=== PATIENT | female | born 1960 | race Caucasian/White ===

== ENCOUNTER 2024-04-01 21:34 | Emergency (ER) | payer OTHER ==
[~2024-04-01] VITALS: Ht 165.1 cm; Wt 65.6 kg
[2024-04-01 22:28] LABS: BASO % 0.7 % (0.0-1.0); EOS # 0.2 10^3/uL (0.0-0.5); EOS % 2.8 % (0.0-3.0); HEMATOCRIT 44.8 % (36.0-47.0); HEMOGLOBIN 15.1 g/dl (12.0-15.5); LYMPH # 2.5 10^3/uL (1.5-5.0); MEAN CORPUSCULAR HEMOGLOBIN 31.1 pg (27.0-33.0); MEAN CORPUSCULAR HGB CONC 33.7 g/dl (32.0-36.5); MEAN CORPUSCULAR VOLUME 92.2 fl (80.0-96.0); MONO # 0.5 10^3/uL (0.0-0.8); MONO % 9.6 % (2.0-8.0); NEUTROPHILS # 2.3 10^3/uL (1.5-8.5); NEUTROPHILS % 41.7 % (36.0-66.0); PLATELET COUNT, AUTOMATED 204 10^3/uL (150-450); RED BLOOD COUNT 4.86 10^6/uL (4.00-5.40); WHITE BLOOD COUNT 5.4 10^3/uL (4.0-10.0)
[2024-04-01 22:40] LABS: INR 0.93; PROTHROMBIN TIME 12.2 SECONDS (12.5-14.5)
[2024-04-01 22:47] LABS: CK-MB VALUE MASS < 1.0 NG/ML (<3.6); LIPASE 55 U/L (12-53)
[2024-04-01 22:50] LABS: ALBUMIN 3.6 G/DL (3.2-5.2); ALKALINE PHOSPHATASE 148 U/L (46-116); ALT/SGPT 31 U/L (7.0-40); AST/SGOT 20 U/L (<34); BILIRUBIN,DIRECT < 0.1 MG/DL (<0.4); BILIRUBIN,TOTAL 0.3 MG/DL (0.3-1.2); BLOOD UREA NITROGEN 27 MG/DL (9-23); CARBON DIOXIDE LEVEL 30 MMOL/L (20-31); CHLORIDE LEVEL 109 MMOL/L (98-107); CREATININE FOR GFR 0.86 MG/DL (0.55-1.30); GLOMERULAR FILTRATION RATE > 60.0 (>45); GLUCOSE, FASTING 143 MG/DL (74-106); POTASSIUM SERUM 3.7 MMOL/L (3.5-5.1); SODIUM LEVEL 143 MMOL/L (136-145); TOTAL PROTEIN 6.3 G/DL (5.7-8.2)
[2024-04-01 22:55] LABS: CPK CREATINE PHOSPHOKINASE 57 U/L (34-145); MB/CK RELATIVE INDEX 1.75 (< OR =4)
[2024-04-01] MEDS: NS 1,000 ML IV ONE (23:39)
[2024-04-01] MEDS: KETOROLAC 30 MG/ML 1ML VIAL IV ONE (23:39)
[2024-04-01 23:49] LABS: MAGNESIUM LEVEL 2.1 MG/DL (1.8-2.4)
[2024-04-01 23:53] LABS: THYROID STIMULATING HORMONE 3.768 uIU/ML (0.55-4.78)
[2024-04-02] MEDS ORDERED: AMLO25TA PO (00:45)
[2024-04-02 01:00] VITALS: BP 149/72
[2024-04-02 01:04] VITALS: TEMP 98.4; O2SAT 98
== END 2024-04-02 01:10 | disposition home or self-care (01) ==
LOC: M ED 21:34
DX: I10 Essential (primary) hypertension (principal); R51.9 Headache, unspecified; I45.19 Other right bundle-branch block; I49.3 Ventricular premature depolarization; I44.4 Left anterior fascicular block; Z79.899 Other long term (current) drug therapy
CPT/HCPCS: 36415; 71045; 80053; 82248; 82550; 82553; 83690; 83735; 84443; 84484; 85025; 85610; 93005; 96361; 96374; 99284; J1885